=== PATIENT | male | born 1995 ===

== ENCOUNTER 2017-08-20 07:59 | Emergency (ER) | payer OTHER ==
[~2017-08-20] VITALS: Ht 175.3 cm; Wt 74.8 kg
[~2017-08-20 07:59] MED LIST: NAPR550 PO
[2017-08-20] MEDS ORDERED: Zofran Odt4 MG SL (08:59)
[2017-08-20] MEDS ORDERED: Tamiflu75 MG PO (22:10)
== END 2017-08-20 08:35 | disposition home or self-care (01) ==
LOC: ER 07:59
DX: J11.1 Influenza due to unidentified influenza virus with other respiratory manifestations (principal); F17.210 Nicotine dependence, cigarettes, uncomplicated
CPT/HCPCS: 87081; 87147; 87430; 99283

== ENCOUNTER 2017-08-20 21:20 | Emergency (ER) | payer OTHER ==
[~2017-08-20] VITALS: Ht 175.3 cm; Wt 74.8 kg
[~2017-08-20 21:20] MED LIST changes: +Zofran Odt4 MG SL
[2017-08-20] MEDS ORDERED: Tamiflu75 MG PO (22:10)
== END 2017-08-20 22:20 | disposition home or self-care (01) ==
LOC: ER 21:20
DX: J11.1 Influenza due to unidentified influenza virus with other respiratory manifestations (principal); F17.210 Nicotine dependence, cigarettes, uncomplicated; Z79.899 Other long term (current) drug therapy
CPT/HCPCS: 99283